=== PATIENT | female | born 1935 | race Caucasian/White ===

== ENCOUNTER 2022-06-18 11:00 | Outpatient (RCR) | payer MEDICARE, OTHER, SELFPAY | END 2022-07-10 14:50 | disposition home or self-care (01) | LOC: HO.PTWFD 11:00 | PROVIDERS: PCP Internal Medicine; Visit Provider Internal Medicine | DX: M54.16 Radiculopathy, lumbar region (principal) | CPT/HCPCS: 97110; 97140; 97162; 97535 ==